=== PATIENT | male | born 1965 | race Caucasian/White ===

== ENCOUNTER 2021-05-17 19:24 | Emergency (ER) | payer OTHER ==
[~2021-05-17] VITALS: Ht 165.1 cm; Wt 102.3 kg
[2021-05-17] MEDS ORDERED: NORVASC10 MG PO (19:48)
[2021-05-17] MEDS ORDERED: LIPITOR20 MG PO (19:49)
[2021-05-17] MEDS ORDERED: COZAAR100 MG PO (19:49)
[2021-05-17] MEDS ORDERED: FLOMAX0.4 MG PO (19:50)
[2021-05-17] MEDS ORDERED: HYDROCODON-ACE1 EAC8 PO (19:51)
[2021-05-17] MEDS ORDERED: LEVOFLOXACIN500 MG PO (21:31)
== END 2021-05-17 21:55 | disposition home or self-care (01) ==
LOC: ED 19:24
DX: N20.0 Calculus of kidney (principal); Z88.0 Allergy status to penicillin; Z79.899 Other long term (current) drug therapy
CPT/HCPCS: 51702; 51798; 74176; 80053; 81001; 85025; 99284-25; J1885; J2405

== ENCOUNTER 2021-08-17 07:12 | Emergency (ER) | payer OTHER ==
[~2021-08-17] VITALS: Ht 165.1 cm; Wt 102.1 kg
[~2021-08-17 07:12] MED LIST: COZAAR100 MG PO; FLOMAX0.4 MG PO; HYDROCODON-ACE1 EAC8 PO; LEVOFLOXACIN500 MG PO; LIPITOR20 MG PO; NORVASC10 MG PO
[2021-08-17] MEDS ORDERED: OXYCODONE HCL5 MG PO (12:06)
[2021-08-17] MEDS ORDERED: COL-RITE250 MG PO (12:06)
--- NOTE | 2021-08-18 13:47 | EKG ---
[facility] [address] [facility] [place], [place] [address] Signed Normal sinus rhythm Normal ECG No previous ECGs available Confirmed by AMERICA BRODERICK MD ([id number]) on 08/18/2021 1:47:18 PM Electronically Signed By: AMERICA BRODERICK MD 08/18/21 1347 PATIENT NAME: ISAAC ZACARIAS Electrocardiogram DATE OF : 65 PHYSICIAN: AMERICA BRODERICK MD REPORT #: [id number] REPORT IS CONFIDENTIAL AND NOT TO BE RELEASED WITHOUT AUTHORIZATION
== END 2021-08-17 13:08 | disposition home or self-care (01) ==
LOC: ED 07:12
DX: U07.1 COVID-19 (principal); N20.0 Calculus of kidney; Z87.442 Personal history of urinary calculi; Z79.899 Other long term (current) drug therapy
CPT/HCPCS: 36415; 71046; 71260; 74176; 80053; 81001; 83605; 85025; 85610; 85730; 93005; 93010; 96374; 96375; 96376; 99285-25; C9803; J1885; J2270; J2405; J7121; Q9967; U0003